=== PATIENT | male | born 1955 | race Caucasian/White ===

== ENCOUNTER → 2019-05-25 | Outpatient (CLI) | payer OTHER ==
[2019-05-25 18:32] LABS: BASO % 0.4 % (0.0-1.0); EOS # 0.3 10^3/uL (0.0-0.5); EOS % 4.6 % (0.0-3.0); HEMATOCRIT 52.1 % (42.0-52.0); HEMOGLOBIN 17.1 g/dl (13.5-17.5); LYMPH # 2.1 10^3/uL (1.5-5.0); LYMPH % 30.3 % (24.0-44.0); MEAN CORPUSCULAR HEMOGLOBIN 28.7 pg (27.0-33.0); MEAN CORPUSCULAR HGB CONC 32.8 g/dl (32.0-36.5); MEAN CORPUSCULAR VOLUME 87.4 fl (80.0-96.0); MONO # 0.6 10^3/uL (0.0-0.8); MONO % 8.4 % (0.0-5.0); NEUTROPHILS # 3.8 10^3/uL (1.5-8.5); NEUTROPHILS % 55.4 % (36.0-66.0); PLATELET COUNT, AUTOMATED 211 10^3/uL (150-450); RED BLOOD COUNT 5.96 10^6/uL (4.30-6.10); WHITE BLOOD COUNT 6.8 10^3/uL (4.0-10.0)
[2019-05-25 18:55] LABS: ALT/SGPT 71 U/L (12-78); BILIRUBIN,TOTAL 0.6 MG/DL (0.2-1.0); BLOOD UREA NITROGEN 13 MG/DL (7-18); CALCIUM LEVEL 8.7 MG/DL (8.8-10.2); CARBON DIOXIDE LEVEL 30 MEQ/L (21-32); CHLORIDE LEVEL 108 MEQ/L (98-107); CREATININE FOR GFR 0.88 MG/DL (0.70-1.30); GLOMERULAR FILTRATION RATE > 60.0 (>49); GLUCOSE, FASTING 98 MG/DL (70-100); POTASSIUM SERUM 4.6 MEQ/L (3.5-5.1); SODIUM LEVEL 142 MEQ/L (136-145); TOTAL PROTEIN 7.1 GM/DL (6.4-8.2)
[2019-05-26 11:47] LABS: HEPATITIS B SURFACE ANTIBODY POSITIVE (POSITIVE)
[2019-05-26 11:58] LABS: HEPATITIS B SURFACE ANTIGEN NEGATIVE (NEGATIVE)
[2019-05-26 12:26] LABS: HIV 1&2 SCREEN CENTAUR NEGATIVE (NEGATIVE)
[2019-05-29 00:06] LABS: HBV HBV DNA not detected IU/mL (.); HEPATITIS A IgG TOTAL Negative (Negative); HEPATITIS B CORE ANTIBODY IGG Positive (Negative); HEPATITIS C QUANTITATION 5925550 IU/mL (.); HEPATITIS C VIRUS GENOTYPE 3 (.)
== END ==
LOC: M PLALAB 12:09
PROVIDERS: ATTEND Internal Medicine Infectious Disease
DX: B18.2 Chronic viral hepatitis C (principal); Z86.19 Personal history of other infectious and parasitic diseases

== ENCOUNTER → 2019-09-20 | Outpatient (REF) | payer OTHER ==
[2019-09-20 15:56] LABS: ALBUMIN 3.8 GM/DL (3.2-5.2); BILIRUBIN,DIRECT 0.2 MG/DL (0.0-0.2); BILIRUBIN,TOTAL 0.5 MG/DL (0.2-1.0); TOTAL PROTEIN 7.2 GM/DL (6.4-8.2)
[2019-09-23 12:07] LABS: HEPATITIS C QUANTITATION HCV Not Detected IU/mL (.)
== END ==
LOC: M SFHCPLAZ 14:01
PROVIDERS: ATTEND Internal Medicine Infectious Disease
DX: B18.2 Chronic viral hepatitis C (principal)

== ENCOUNTER → 2020-01-24 | Outpatient (REF) | payer OTHER ==
[2020-01-24 18:22] LABS: ALBUMIN 3.6 GM/DL (3.2-5.2); ALT/SGPT 11 U/L (12-78); BILIRUBIN,DIRECT < 0.1 MG/DL (0.0-0.2); BILIRUBIN,TOTAL 0.3 MG/DL (0.2-1.0)
[2020-01-26 23:11] LABS: HEPATITIS C QUANTITATION HCV Not Detected IU/mL (.)
== END ==
LOC: M SFHCPLAZ 13:08
PROVIDERS: ATTEND Internal Medicine Infectious Disease
DX: B18.2 Chronic viral hepatitis C (principal)

== ENCOUNTER 2023-01-08 08:23 | Inpatient (IN) | payer MEDICARE, OTHER ==
[~2023-01-08] VITALS: Ht 165.1 cm; Wt 40.0 kg
[~2023-01-08 08:23] MED LIST: ACET-683 PO; ALBU6.7H6 INH; AMIT25TA19 PO; FLUC10TA PO; GABA-284 PO; HYDR-3490 PO; IBUP200T46 PO; OMEP1CAP73 PO; POTA-298 PO
[2023-01-08] MEDS ORDERED: LIDOCAINE 1% MDV 20ML VIAL As Ordered ONE (08:52)
[2023-01-08 08:56] LABS: PLATELET COUNT, AUTOMATED 247 10^3/uL (150-450)
[2023-01-08 09:22] LABS: INR 1.15; PROTHROMBIN TIME 14.3 SECONDS (12.5-14.5)
[2023-01-08 09:23] LABS: PARTIAL THROMBOPLASTIN TIME 28.8 SECONDS (24.8-34.2)
[2023-01-08] MEDS ORDERED: FAMO40TA3 PO (09:31)
[2023-01-08] MEDS ORDERED: SUCR1ORA PO (09:31)
[2023-01-08] MEDS ORDERED: PANT40TA29 PO (09:31)
[2023-01-08] MEDS ORDERED: ANOR1AER INH (09:31)
[2023-01-08] MEDS ORDERED: HOME MED LIST COMPLETE! XX SCH (09:35)
[2023-01-08] MEDS ORDERED: HYDROmorphone HCL 2MG/ML 1ML VIAL As Ordered ONE (10:30)
[2023-01-08] MEDS ORDERED: PERCOCET 5MG/325MG TAB As Ordered ONE (11:04)
[2023-01-08] MEDS ORDERED: KETOROLAC 30 MG/ML 1ML VIAL As Ordered ONE (11:04)
[2023-01-08] MEDS ORDERED: KETOROLAC 30 MG/ML 1ML VIAL IV PRN (11:05)
[2023-01-08] MEDS: PERCOCET 5MG/325MG TAB PO PRN ×3 (11:17→23:58)
[2023-01-08] MEDS ORDERED: PANTOPRAZOLE 40MG TAB (PROTONIX) PO PRN (11:20)
[2023-01-08] MEDS ORDERED: ALBUTEROL 90 MCG/ACT 8GM HFA INHALER INH PRN (11:20)
[2023-01-08 12:00] VITALS: BP 127/82; TEMP 98.5; O2SAT 98
[2023-01-08] MEDS ORDERED: ONDANSETRON 4MG 2ML VIAL IV PRN (13:25)
[2023-01-08] MEDS ORDERED: ACETAMINOPHEN TAB 650MG DOSE (2X325MG) PO PRN (13:25)
[2023-01-08] MEDS ORDERED: BISACODYL 10MG SUPP PR PRN (13:25)
[2023-01-08] MEDS ORDERED: IPRATROPIUM 0.5MG/ALBUTEROL 2.5MG INH SOL UD 3ML (DUONEB) NEB SCH (14:00)
[2023-01-08 14:22] LABS: HEMATOCRIT 45.7 % (42.0-52.0); HEMOGLOBIN 14.7 g/dl (13.5-17.5); MEAN CORPUSCULAR HEMOGLOBIN 28.2 pg (27.0-33.0); MEAN CORPUSCULAR HGB CONC 32.2 g/dl (32.0-36.5); MEAN CORPUSCULAR VOLUME 87.5 fl (80.0-96.0); PLATELET COUNT, AUTOMATED 254 10^3/uL (150-450); RED BLOOD COUNT 5.22 10^6/uL (4.30-6.10); WHITE BLOOD COUNT 14.9 10^3/uL (4.0-10.0)
[2023-01-08 14:51] LABS: ALBUMIN 3.4 G/DL (3.2-5.2); ALKALINE PHOSPHATASE 48 U/L (46-116); ALT/SGPT 15 U/L (7.0-40); AST/SGOT 11 U/L (<34); BILIRUBIN,TOTAL 0.4 MG/DL (0.3-1.2); BLOOD UREA NITROGEN 16 MG/DL (9-23); CALCIUM LEVEL 8.6 MG/DL (8.3-10.6); CARBON DIOXIDE LEVEL 29 MMOL/L (20-31); CHLORIDE LEVEL 104 MMOL/L (98-107); CREATININE FOR GFR 0.75 MG/DL (0.70-1.30); GLOMERULAR FILTRATION RATE > 60.0 (>49); GLUCOSE, FASTING 115 MG/DL (74-106); POTASSIUM SERUM 3.8 MMOL/L (3.5-5.1); SODIUM LEVEL 139 MMOL/L (136-145); TOTAL PROTEIN 6.4 G/DL (5.7-8.2)
[2023-01-08 15:02] LABS: PROCALCITONIN <0.04 ng/ml
[2023-01-08] MEDS: PANTOPRAZOLE 40MG TAB (PROTONIX) PO SCH (15:28)
[2023-01-08] MEDS: MOM 30ML SUSPENSION UDC PO SCH (15:28)
[2023-01-08 16:46] VITALS: BP 131/79; TEMP 97.7; O2SAT 97
[2023-01-08] MEDS: KETOROLAC 30 MG/ML 1ML VIAL IV SCH ×2 (17:22→23:57)
[2023-01-08] MEDS: SUCRALFATE SUSP 1GM/10ML UD PO SCH ×2 (17:25→21:01)
[2023-01-08 20:00] VITALS: BP 156/91; TEMP 98; O2SAT 98
[2023-01-08] MEDS ORDERED: ACETAMINOPHEN *IV* 500 MG in IV 1 EA IV ONE (20:15)
[2023-01-08] MEDS: DOCUSATE SODIUM 100MG CAPSULE PO SCH (21:00)
[2023-01-08] MEDS ORDERED: ENTER DRUG NAME HERE (PATIENT'S OWN MED) XX SCH (21:00)
[2023-01-08] MEDS: FAMOTIDINE 20 MG TAB PO SCH (21:01)
[2023-01-08 23:51] VITALS: BP 113/73; TEMP 97.9; O2SAT 96
[2023-01-09] VITALS: BP 113/73; TEMP 97.9; O2SAT 6; O2SAT 96
[2023-01-09 04:00] VITALS: BP 125/83; TEMP 97.4; O2SAT 94
[2023-01-09] MEDS: KETOROLAC 30 MG/ML 1ML VIAL IV SCH ×3 (05:47→17:47)
[2023-01-09 05:54] LABS: ABG BASE EXCESS -0.1 (-2.0-2.0); ABG HCO3 25.8 MMOL/L (22.0-26.0); ABG O2 SATURATION 96.4 % (95.0-99.0); ABG PARTIAL PRESSURE CO2 46.5 mmHg (35.0-45.0); ABG PARTIAL PRESSURE O2 87.6 mmHg (75.0-100.0); ABG STANDARD HCO3 24.4 MMOL/L. (22.0-26.0); ABG TOTAL CO2 27.2 MMOL/L (23.0-31.0); ABG pH (ARTERIAL) 7.362 UNITS (7.350-7.450)
[2023-01-09 06:29] LABS: BASO % 0.2 % (0.0-1.0); EOS # 0.3 10^3/uL (0.0-0.5); EOS % 3.6 % (0.0-3.0); HEMATOCRIT 42.6 % (42.0-52.0); HEMOGLOBIN 13.7 g/dl (13.5-17.5); LYMPH # 1.7 10^3/uL (1.5-5.0); LYMPH % 20.2 % (24.0-44.0); MEAN CORPUSCULAR HEMOGLOBIN 28.4 pg (27.0-33.0); MEAN CORPUSCULAR HGB CONC 32.2 g/dl (32.0-36.5); MEAN CORPUSCULAR VOLUME 88.2 fl (80.0-96.0); MONO # 0.7 10^3/uL (0.0-0.8); NEUTROPHILS # 5.4 10^3/uL (1.5-8.5); NEUTROPHILS % 66.6 % (36.0-66.0); PLATELET COUNT, AUTOMATED 217 10^3/uL (150-450); RED BLOOD COUNT 4.83 10^6/uL (4.30-6.10); WHITE BLOOD COUNT 8.2 10^3/uL (4.0-10.0)
[2023-01-09 06:48] LABS: BLOOD UREA NITROGEN 18 MG/DL (9-23); CALCIUM LEVEL 8.6 MG/DL (8.3-10.6); CARBON DIOXIDE LEVEL 32 MMOL/L (20-31); CHLORIDE LEVEL 105 MMOL/L (98-107); CREATININE FOR GFR 0.86 MG/DL (0.70-1.30); GLOMERULAR FILTRATION RATE > 60.0 (>49); GLUCOSE, FASTING 100 MG/DL (74-106); MAGNESIUM LEVEL 1.8 MG/DL (1.8-2.4); POTASSIUM SERUM 3.7 MMOL/L (3.5-5.1); SODIUM LEVEL 141 MMOL/L (136-145)
[2023-01-09 08:00] VITALS: BP 119/69; TEMP 97.8; O2SAT 93
[2023-01-09] MEDS: hydroCHLOROthiazide 12.5 MG CAPSULE PO SCH (09:13)
[2023-01-09] MEDS: DOCUSATE SODIUM 100MG CAPSULE PO SCH ×2 (09:15→20:00)
[2023-01-09] MEDS: PERCOCET 5MG/325MG TAB PO PRN ×2 (09:15→19:59)
[2023-01-09] MEDS: PANTOPRAZOLE 40MG TAB (PROTONIX) PO SCH (09:16)
[2023-01-09] MEDS: MOM 30ML SUSPENSION UDC PO SCH (09:18)
[2023-01-09] MEDS: SUCRALFATE SUSP 1GM/10ML UD PO SCH ×4 (09:18→20:00)
[2023-01-09] MEDS: ENOXAPARIN 40MG/0.4ML SYRINGE (J1650 PER 10MG) SC SCH (09:18)
[2023-01-09 12:00] VITALS: BP 125/80; TEMP 98.2; O2SAT 95
[2023-01-09 15:53] VITALS: BP 135/83; TEMP 97.7; O2SAT 95
[2023-01-09 19:13] VITALS: BP 141/81; TEMP 98; O2SAT 98
[2023-01-09] MEDS: FORMOTEROL FUMARATE 20 MCG/2 ML INHALATION SOLUTION (PERFOROMIST) INH SCH (19:36)
[2023-01-09] MEDS: FAMOTIDINE 20 MG TAB PO SCH (20:00)
[2023-01-10] VITALS (7 sets, daily range): BP systolic 133–164; BP diastolic 74–86; TEMP 97.1–99.2; O2SAT 92–96
[2023-01-10] MEDS: KETOROLAC 30 MG/ML 1ML VIAL IV SCH ×5 (00:15→17:05)
[2023-01-10] MEDS: PERCOCET 5MG/325MG TAB PO PRN (04:42)
[2023-01-10 05:26] LABS: BASO % 0.1 % (0.0-1.0); EOS # 0.3 10^3/uL (0.0-0.5); EOS % 1.7 % (0.0-3.0); HEMATOCRIT 41.7 % (42.0-52.0); HEMOGLOBIN 13.9 g/dl (13.5-17.5); LYMPH # 1.2 10^3/uL (1.5-5.0); LYMPH % 7.3 % (24.0-44.0); MEAN CORPUSCULAR HEMOGLOBIN 29.1 pg (27.0-33.0); MEAN CORPUSCULAR HGB CONC 33.3 g/dl (32.0-36.5); MEAN CORPUSCULAR VOLUME 87.4 fl (80.0-96.0); MONO # 0.9 10^3/uL (0.0-0.8); MONO % 5.6 % (2.0-8.0); NEUTROPHILS # 14.1 10^3/uL (1.5-8.5); NEUTROPHILS % 84.8 % (36.0-66.0); PLATELET COUNT, AUTOMATED 205 10^3/uL (150-450); RED BLOOD COUNT 4.77 10^6/uL (4.30-6.10); WHITE BLOOD COUNT 16.7 10^3/uL (4.0-10.0)
[2023-01-10 07:44] LABS: PROCALCITONIN 0.04 ng/ml
[2023-01-10] MEDS: SUCRALFATE SUSP 1GM/10ML UD PO SCH ×4 (07:58→20:39)
[2023-01-10] MEDS: FORMOTEROL FUMARATE 20 MCG/2 ML INHALATION SOLUTION (PERFOROMIST) INH SCH ×2 (08:15→19:16)
[2023-01-10] MEDS: TIOTROPIUM INHALER/CAPSULE (SPIRIVA) INH SCH (08:16)
[2023-01-10] MEDS: ENOXAPARIN 40MG/0.4ML SYRINGE (J1650 PER 10MG) SC SCH (09:00)
[2023-01-10] MEDS: MOM 30ML SUSPENSION UDC PO SCH (09:39)
[2023-01-10] MEDS: PANTOPRAZOLE 40MG TAB (PROTONIX) PO SCH (09:40)
[2023-01-10] MEDS: hydroCHLOROthiazide 12.5 MG CAPSULE PO SCH (09:40)
[2023-01-10] MEDS: DOCUSATE SODIUM 100MG CAPSULE PO SCH ×2 (09:40→20:40)
[2023-01-10] MEDS: FAMOTIDINE 20 MG TAB PO SCH (20:40)
[2023-01-11] MEDS: KETOROLAC 30 MG/ML 1ML VIAL IV SCH ×4 (00:10→18:50)
[2023-01-11] MEDS: PERCOCET 5MG/325MG TAB PO PRN ×2 (00:13→22:54)
[2023-01-11 03:44] VITALS: BP 134/81; TEMP 97.4; O2SAT 94
[2023-01-11 07:30] VITALS: BP 123/75; TEMP 98.6; O2SAT 93
[2023-01-11 07:54] LABS: BASO % 0.2 % (0.0-1.0); EOS # 0.5 10^3/uL (0.0-0.5); HEMATOCRIT 41.9 % (42.0-52.0); HEMOGLOBIN 13.7 g/dl (13.5-17.5); LYMPH # 1.8 10^3/uL (1.5-5.0); LYMPH % 11.6 % (24.0-44.0); MEAN CORPUSCULAR HEMOGLOBIN 28.4 pg (27.0-33.0); MEAN CORPUSCULAR HGB CONC 32.7 g/dl (32.0-36.5); MEAN CORPUSCULAR VOLUME 86.9 fl (80.0-96.0); MONO # 1.3 10^3/uL (0.0-0.8); MONO % 8.5 % (2.0-8.0); NEUTROPHILS # 11.8 10^3/uL (1.5-8.5); NEUTROPHILS % 76.2 % (36.0-66.0); PLATELET COUNT, AUTOMATED 209 10^3/uL (150-450); RED BLOOD COUNT 4.82 10^6/uL (4.30-6.10); WHITE BLOOD COUNT 15.5 10^3/uL (4.0-10.0)
[2023-01-11] MEDS: FORMOTEROL FUMARATE 20 MCG/2 ML INHALATION SOLUTION (PERFOROMIST) INH SCH ×2 (07:55→18:56)
[2023-01-11] MEDS: TIOTROPIUM INHALER/CAPSULE (SPIRIVA) INH SCH (07:55)
[2023-01-11] MEDS: DOCUSATE SODIUM 100MG CAPSULE PO SCH ×2 (08:36→20:11)
[2023-01-11] MEDS: SUCRALFATE SUSP 1GM/10ML UD PO SCH ×4 (08:36→20:11)
[2023-01-11] MEDS: hydroCHLOROthiazide 12.5 MG CAPSULE PO SCH (08:36)
[2023-01-11] MEDS: PANTOPRAZOLE 40MG TAB (PROTONIX) PO SCH (08:36)
[2023-01-11] MEDS: MOM 30ML SUSPENSION UDC PO SCH (08:37)
[2023-01-11] MEDS: ENOXAPARIN 40MG/0.4ML SYRINGE (J1650 PER 10MG) SC SCH (08:37)
[2023-01-11 09:17] LABS: BLOOD UREA NITROGEN 24 MG/DL (9-23); CALCIUM LEVEL 8.4 MG/DL (8.3-10.6); CARBON DIOXIDE LEVEL 29 MMOL/L (20-31); CHLORIDE LEVEL 105 MMOL/L (98-107); CREATININE FOR GFR 0.88 MG/DL (0.70-1.30); GLOMERULAR FILTRATION RATE > 60.0 (>49); GLUCOSE, FASTING 92 MG/DL (74-106); POTASSIUM SERUM 3.9 MMOL/L (3.5-5.1); SODIUM LEVEL 142 MMOL/L (136-145)
[2023-01-11 12:00] VITALS: BP 126/62; TEMP 97.4; O2SAT 97
[2023-01-11 15:49] VITALS: BP 130/72; TEMP 97.6; O2SAT 93
[2023-01-11 19:32] VITALS: BP 147/82; TEMP 98.5; O2SAT 95
[2023-01-11] MEDS: FAMOTIDINE 20 MG TAB PO SCH (20:11)
[2023-01-11 23:45] VITALS: BP 140/81; TEMP 97.7; O2SAT 92
[2023-01-12] VITALS (7 sets, daily range): BP systolic 135–164; BP diastolic 80–92; TEMP 97.8–99.1; O2SAT 93–95
[2023-01-12] MEDS: KETOROLAC 30 MG/ML 1ML VIAL IV SCH ×4 (00:02→17:18)
[2023-01-12 08:02] LABS: BASO % 0.3 % (0.0-1.0); EOS # 0.4 10^3/uL (0.0-0.5); EOS % 4.7 % (0.0-3.0); HEMATOCRIT 41.7 % (42.0-52.0); HEMOGLOBIN 13.7 g/dl (13.5-17.5); LYMPH # 0.9 10^3/uL (1.5-5.0); LYMPH % 11.2 % (24.0-44.0); MEAN CORPUSCULAR HEMOGLOBIN 28.8 pg (27.0-33.0); MEAN CORPUSCULAR HGB CONC 32.9 g/dl (32.0-36.5); MEAN CORPUSCULAR VOLUME 87.8 fl (80.0-96.0); MONO # 0.6 10^3/uL (0.0-0.8); MONO % 7.2 % (2.0-8.0); NEUTROPHILS % 76.2 % (36.0-66.0); PLATELET COUNT, AUTOMATED 205 10^3/uL (150-450); RED BLOOD COUNT 4.75 10^6/uL (4.30-6.10); WHITE BLOOD COUNT 7.9 10^3/uL (4.0-10.0)
[2023-01-12] MEDS: hydroCHLOROthiazide 12.5 MG CAPSULE PO SCH (08:15)
[2023-01-12] MEDS: MOM 30ML SUSPENSION UDC PO SCH (08:15)
[2023-01-12] MEDS: PANTOPRAZOLE 40MG TAB (PROTONIX) PO SCH (08:15)
[2023-01-12] MEDS: SUCRALFATE SUSP 1GM/10ML UD PO SCH ×4 (08:15→20:32)
[2023-01-12] MEDS: ENOXAPARIN 40MG/0.4ML SYRINGE (J1650 PER 10MG) SC SCH (08:15)
[2023-01-12 08:23] LABS: BLOOD UREA NITROGEN 25 MG/DL (9-23); CALCIUM LEVEL 8.6 MG/DL (8.3-10.6); CARBON DIOXIDE LEVEL 32 MMOL/L (20-31); CHLORIDE LEVEL 104 MMOL/L (98-107); CREATININE FOR GFR 0.78 MG/DL (0.70-1.30); GLOMERULAR FILTRATION RATE > 60.0 (>49); GLUCOSE, FASTING 127 MG/DL (74-106); POTASSIUM SERUM 3.3 MMOL/L (3.5-5.1); SODIUM LEVEL 143 MMOL/L (136-145)
[2023-01-12] MEDS: DOCUSATE SODIUM 100MG CAPSULE PO SCH ×2 (09:00→20:32)
[2023-01-12] MEDS: PERCOCET 5MG/325MG TAB PO PRN (10:11)
[2023-01-12] MEDS: TIOTROPIUM INHALER/CAPSULE (SPIRIVA) INH SCH (11:38)
[2023-01-12] MEDS: FORMOTEROL FUMARATE 20 MCG/2 ML INHALATION SOLUTION (PERFOROMIST) INH SCH ×2 (11:38→18:57)
[2023-01-12] MEDS ORDERED: POTASSIUM CHLORIDE 10MEQ SR TABLET PO ONE (12:00)
[2023-01-12] MEDS: FAMOTIDINE 20 MG TAB PO SCH (20:32)
[2023-01-13 00:07] VITALS: BP 162/90
[2023-01-13] MEDS ORDERED: ACETAMINOPHEN *IV* 500 MG in IV 1 EA IV ONE (00:20)
[2023-01-13 03:26] VITALS: BP 146/88; TEMP 98; O2SAT 95
[2023-01-13] MEDS: KETOROLAC 30 MG/ML 1ML VIAL IV SCH ×3 (05:20→14:39)
[2023-01-13 06:25] LABS: BASO % 0.2 % (0.0-1.0); EOS # 0.4 10^3/uL (0.0-0.5); EOS % 4.4 % (0.0-3.0); HEMATOCRIT 39.4 % (42.0-52.0); HEMOGLOBIN 13.4 g/dl (13.5-17.5); LYMPH # 1.4 10^3/uL (1.5-5.0); LYMPH % 16.4 % (24.0-44.0); MEAN CORPUSCULAR HEMOGLOBIN 29.4 pg (27.0-33.0); MEAN CORPUSCULAR VOLUME 86.4 fl (80.0-96.0); MONO # 0.8 10^3/uL (0.0-0.8); MONO % 9.1 % (2.0-8.0); NEUTROPHILS # 6.1 10^3/uL (1.5-8.5); NEUTROPHILS % 69.4 % (36.0-66.0); PLATELET COUNT, AUTOMATED 259 10^3/uL (150-450); RED BLOOD COUNT 4.56 10^6/uL (4.30-6.10); WHITE BLOOD COUNT 8.7 10^3/uL (4.0-10.0)
[2023-01-13 06:54] LABS: BLOOD UREA NITROGEN 18 MG/DL (9-23); CALCIUM LEVEL 8.2 MG/DL (8.3-10.6); CARBON DIOXIDE LEVEL 32 MMOL/L (20-31); CHLORIDE LEVEL 104 MMOL/L (98-107); CREATININE FOR GFR 0.69 MG/DL (0.70-1.30); GLOMERULAR FILTRATION RATE > 60.0 (>49); GLUCOSE, FASTING 95 MG/DL (74-106); POTASSIUM SERUM 3.1 MMOL/L (3.5-5.1); SODIUM LEVEL 143 MMOL/L (136-145)
[2023-01-13] MEDS: TIOTROPIUM INHALER/CAPSULE (SPIRIVA) INH SCH (08:07)
[2023-01-13] MEDS: FORMOTEROL FUMARATE 20 MCG/2 ML INHALATION SOLUTION (PERFOROMIST) INH SCH ×2 (08:07→19:59)
[2023-01-13 08:10] VITALS: BP 178/80; TEMP 97.6; O2SAT 94
[2023-01-13] MEDS: DOCUSATE SODIUM 100MG CAPSULE PO SCH ×2 (08:59→20:11)
[2023-01-13] MEDS: ENOXAPARIN 40MG/0.4ML SYRINGE (J1650 PER 10MG) SC SCH (08:59)
[2023-01-13] MEDS: MOM 30ML SUSPENSION UDC PO SCH (08:59)
[2023-01-13] MEDS: SUCRALFATE SUSP 1GM/10ML UD PO SCH ×4 (08:59→20:10)
[2023-01-13] MEDS: hydroCHLOROthiazide 12.5 MG CAPSULE PO SCH (08:59)
[2023-01-13] MEDS: PANTOPRAZOLE 40MG TAB (PROTONIX) PO SCH (08:59)
[2023-01-13] MEDS ORDERED: POTASSIUM CHLORIDE 10MEQ SR TABLET PO ONE (09:25)
[2023-01-13] MEDS ORDERED: PERCOCET 5MG/325MG TAB PO ONE (10:00)
[2023-01-13] MEDS ORDERED: LORazepam 0.5 MG TAB PO PRN (10:35)
[2023-01-13] MEDS ORDERED: LIDOCAINE 1% MDV 20ML VIAL As Ordered ONE (11:19)
[2023-01-13 15:20] VITALS: BP 160/90; TEMP 97.8; O2SAT 93
[2023-01-13 19:28] VITALS: BP 156/94; TEMP 98.1; O2SAT 97
[2023-01-13] MEDS: FAMOTIDINE 20 MG TAB PO SCH (20:11)
[2023-01-13 23:23] VITALS: BP 136/84; TEMP 98.2; O2SAT 97
[2023-01-14 03:38] VITALS: BP 158/86; TEMP 97.8; O2SAT 98
[2023-01-14 07:15] LABS: BASO % 0.3 % (0.0-1.0); EOS # 0.1 10^3/uL (0.0-0.5); EOS % 1.5 % (0.0-3.0); HEMATOCRIT 44.3 % (42.0-52.0); HEMOGLOBIN 14.7 g/dl (13.5-17.5); LYMPH # 1.1 10^3/uL (1.5-5.0); LYMPH % 14.5 % (24.0-44.0); MEAN CORPUSCULAR HEMOGLOBIN 28.5 pg (27.0-33.0); MEAN CORPUSCULAR HGB CONC 33.2 g/dl (32.0-36.5); MEAN CORPUSCULAR VOLUME 85.9 fl (80.0-96.0); MONO # 0.7 10^3/uL (0.0-0.8); MONO % 8.3 % (2.0-8.0); NEUTROPHILS # 5.8 10^3/uL (1.5-8.5); NEUTROPHILS % 74.6 % (36.0-66.0); PLATELET COUNT, AUTOMATED 262 10^3/uL (150-450); RED BLOOD COUNT 5.16 10^6/uL (4.30-6.10); WHITE BLOOD COUNT 7.8 10^3/uL (4.0-10.0)
[2023-01-14] MEDS: TIOTROPIUM INHALER/CAPSULE (SPIRIVA) INH SCH (07:23)
[2023-01-14 07:39] LABS: BLOOD UREA NITROGEN 18 MG/DL (9-23); CALCIUM LEVEL 8.9 MG/DL (8.3-10.6); CARBON DIOXIDE LEVEL 30 MMOL/L (20-31); CHLORIDE LEVEL 101 MMOL/L (98-107); CREATININE FOR GFR 0.69 MG/DL (0.70-1.30); GLOMERULAR FILTRATION RATE > 60.0 (>49); GLUCOSE, FASTING 96 MG/DL (74-106); POTASSIUM SERUM 3.7 MMOL/L (3.5-5.1); SODIUM LEVEL 138 MMOL/L (136-145)
[2023-01-14 07:55] VITALS: BP 112/79; TEMP 97.8; O2SAT 96
[2023-01-14] MEDS: SUCRALFATE SUSP 1GM/10ML UD PO SCH ×4 (08:32→20:51)
[2023-01-14] MEDS: DOCUSATE SODIUM 100MG CAPSULE PO SCH ×2 (08:32→20:51)
[2023-01-14] MEDS: hydroCHLOROthiazide 12.5 MG CAPSULE PO SCH (08:32)
[2023-01-14] MEDS: PANTOPRAZOLE 40MG TAB (PROTONIX) PO SCH (08:32)
[2023-01-14] MEDS: ENOXAPARIN 40MG/0.4ML SYRINGE (J1650 PER 10MG) SC SCH (08:33)
[2023-01-14] MEDS: MOM 30ML SUSPENSION UDC PO SCH (08:33)
[2023-01-14 12:15] VITALS: BP 153/93; TEMP 97.8; O2SAT 95
[2023-01-14 16:00] VITALS: BP 123/79; TEMP 97.9; O2SAT 95
[2023-01-14 19:30] VITALS: BP 156/83; TEMP 98.7; O2SAT 92
[2023-01-14] MEDS: FAMOTIDINE 20 MG TAB PO SCH (20:51)
[2023-01-14 22:58] VITALS: BP 122/87; TEMP 98.6; O2SAT 94
[2023-01-15 03:45] VITALS: BP 139/86; TEMP 98.3; O2SAT 92
[2023-01-15 04:31] LABS: BLOOD UREA NITROGEN 21 MG/DL (9-23); CALCIUM LEVEL 8.8 MG/DL (8.3-10.6); CARBON DIOXIDE LEVEL 33 MMOL/L (20-31); CHLORIDE LEVEL 102 MMOL/L (98-107); CREATININE FOR GFR 0.69 MG/DL (0.70-1.30); GLOMERULAR FILTRATION RATE > 60.0 (>49); GLUCOSE, FASTING 107 MG/DL (74-106); POTASSIUM SERUM 3.2 MMOL/L (3.5-5.1); SODIUM LEVEL 140 MMOL/L (136-145)
[2023-01-15] MEDS: KCL 10MEQ/100ML SWI (KRUN) 10 MEQ in IV 1 EA IV SCH ×3 (05:00→06:00)
[2023-01-15] MEDS ORDERED: POTASSIUM CHLORIDE 10MEQ SR TABLET PO ONE (06:00)
[2023-01-15] MEDS: SUCRALFATE SUSP 1GM/10ML UD PO SCH ×2 (07:30→10:10)
[2023-01-15 07:39] VITALS: BP 153/96; TEMP 97.9; O2SAT 91
[2023-01-15 08:05] LABS: HEMATOCRIT 44.9 % (42.0-52.0); HEMOGLOBIN 15.1 g/dl (13.5-17.5); MEAN CORPUSCULAR HEMOGLOBIN 28.9 pg (27.0-33.0); MEAN CORPUSCULAR HGB CONC 33.6 g/dl (32.0-36.5); PLATELET COUNT, AUTOMATED 291 10^3/uL (150-450); RED BLOOD COUNT 5.22 10^6/uL (4.30-6.10); WHITE BLOOD COUNT 8.8 10^3/uL (4.0-10.0)
[2023-01-15] MEDS: DOCUSATE SODIUM 100MG CAPSULE PO SCH (08:29)
[2023-01-15] MEDS: PANTOPRAZOLE 40MG TAB (PROTONIX) PO SCH (08:29)
[2023-01-15] MEDS: ENOXAPARIN 40MG/0.4ML SYRINGE (J1650 PER 10MG) SC SCH (08:29)
[2023-01-15] MEDS: MOM 30ML SUSPENSION UDC PO SCH (08:29)
[2023-01-15] MEDS: hydroCHLOROthiazide 12.5 MG CAPSULE PO SCH (08:30)
[2023-01-15] MEDS ORDERED: ACET1TAB55 PO (11:20)
[2023-01-15 11:47] VITALS: BP 145/87; TEMP 98.2; O2SAT 93
== END 2023-01-15 16:29 | disposition home or self-care (01) | DRG 199 ==
LOC: M IRPRO 08:23 → M PCU 11:58
PROVIDERS: ADMIT Internal Medicine; ATTEND Internal Medicine Critical Care Medicine
PROC: 0W9930Z Drainage of Right Pleural Cavity with Drainage Device, Percutaneous Approach (ICD-10-PCS; 2023-01-08)
PROC: 0BBF3ZX Excision of Right Lower Lung Lobe, Percutaneous Approach, Diagnostic (ICD-10-PCS; principal; 2023-01-08 09:00)
PROC: 0BBF3ZX Excision of Right Lower Lung Lobe, Percutaneous Approach, Diagnostic (ICD-10-PCS; 2023-01-13)
DX: J95.811 Postprocedural pneumothorax (principal); J96.01 Acute respiratory failure with hypoxia; K22.10 Ulcer of esophagus without bleeding; Z68.1 Body mass index [BMI] 19.9 or less, adult; R91.8 Other nonspecific abnormal finding of lung field; E87.6 Hypokalemia; J43.9 Emphysema, unspecified; R91.1 Solitary pulmonary nodule; R63.6 Underweight; J44.9 Chronic obstructive pulmonary disease, unspecified; I10 Essential (primary) hypertension; B18.2 Chronic viral hepatitis C; F17.210 Nicotine dependence, cigarettes, uncomplicated; R13.10 Dysphagia, unspecified; Z85.118 Personal history of other malignant neoplasm of bronchus and lung; Z79.899 Other long term (current) drug therapy

== ENCOUNTER → 2023-01-21 | Outpatient (REF) | payer MEDICARE, MEDICAID ==
[~2023-01-21] MED LIST changes: +ACET1TAB55 PO; +ANOR1AER INH; +FAMO40TA3 PO; +PANT40TA29 PO; +SUCR1ORA PO
== END ==
LOC: M LAB REF 17:43
PROVIDERS: ATTEND Internal Medicine Critical Care Medicine
DX: J44.9 Chronic obstructive pulmonary disease, unspecified (principal)

== ENCOUNTER → 2023-03-26 | Outpatient (CLI) | payer MEDICAID, MEDICARE | LOC: M PLAIMG 13:45 | PROVIDERS: ATTEND Internal Medicine Critical Care Medicine | DX: J93.9 Pneumothorax, unspecified (principal) ==